=== PATIENT | female | born 1950 | race Caucasian/White ===

== ENCOUNTER 2016-12-16 12:23 | Emergency (ER) | payer OTHER, MEDICAID ==
[~2016-12-16] VITALS: Ht 165.1 cm; Wt 120.0 kg
[~2016-12-16 12:23] MED LIST: CELE200C PO; CLON.1 PO; ENAL10TA7 PO; METF500 PO; METO100T PO; NIFE60TA5 PO; SYNT200T PO; ZOCO40TA PO
[2016-12-16 12:26] VITALS: BP 190/101; PULSE 103; RESP 16; TEMP 98.2; O2SAT 95
[2016-12-16] MEDS ORDERED: SODIUM CHLOR 0.9% 1000 ML INJ 1,000 ML IV SCH ×2 (13:54→14:06)
[2016-12-16] MEDS ORDERED: MORPHINE SULFATE 4 MG/ML INJ IV PUSH ONE (14:15)
[2016-12-16] MEDS ORDERED: ONDANSETRON HCL 4 MG/2 ML VIAL IVP ONE (14:15)
--- NOTE | 2016-12-16 14:23 | PD ---
HPI Chief Complaint: Abdominal Pain Time Seen by Provider: 14:19 Travel History International Travel<30 days: No Contact w/Intl Traveler<30days: No Traveled to known affect area: No History of Present Illness HPI 66-year-old female that presents to the ED for evaluation of right lower quadrant abdominal pain to the back. Per patient she's had this since yesterday. Per patient she's had some issues with constipation and was put on magnesium psych treated by her doctor with good results having a bowel movement yesterday. Per patient she was concerned this might be related to that. She also tells me that she does have a history of kidney stones and this pain feels somewhat similar to that except that his is more severe than what she can remember. She states that the pain gets worse with movement and there is no actual position that makes her more comfortable. Per patient the pain is 8 out of 10. Comes and goes but today has becoming more constant. No urinary issues. Per patient she did have a normal bowel movement yesterday but she is concerned that she might have something causing an obstruction. She denies any fevers chills or sweats. No nausea or vomiting. She does have a history of appendectomy as well as hysterectomy in the past with no issues. She actually went to see her doctor for the constipation and was given the magnesium psych today but has not been seen for this new pain. She has not taken anything for this pain. PFSH Past Medical History Autoimmune Disease: No Cardiovascular Problems: Yes (HTN) Diabetes: Yes ?: Not Social History Alcohol Use: Yes (1 "BUD" EVERY 2-3 WEEKS) Tobacco Use: No Substance Use: No Allergies-Medications (Allergen,Severity, Reaction): Coded Allergies: No Known Allergies (Verified , 12/16/16) Reported Meds & Prescriptions Reported Meds & Active Scripts Active Reported Synthroid 200 mcg (Levothyroxine Sodium) 200 Mcg Tab 500 Mcg PO DAILY TAKE ON AN EMPTY STOMACH Zocor 40 mg (Simvastatin) 40 Mg Tab 10 Mg PO HS Nifedical Xl (Nifedipine) 60 Mg Tab 120 Mg PO DAILY Metoprolol Tartrate 100 mg (Metoprolol Tartrate) 100 Mg Tab 100 Mg PO BID Glucophage 500 mg (Metformin HCl) 500 Mg Tab 1,000 Mg PO BIDPC Enalapril Maleate 10 Mg Tab 20 Mg PO BID Catapres 0.1 mg (Clonidine HCl) 0.1 Mg Tab 1 Tab PO BID Celebrex (Celecoxib) 200 Mg Cap 200 Mg PO Review of Systems General / Constitutional: No: Fever, Chills, Weight Gain, Weight Loss, Other Eyes: No: Diploplia, Blurred Vision, Photophobia, Drainage, Redness, Foreign Body Sensation, Pain, Tearing, Blind Spots, Visual changes, Blindness, Other HENT: No: Headaches, Vertigo, Lightheadedness, Sore Throat, Rhinitis, Rhinorrhea, Congestion, Nosebleed, Neck Stiffness, Neck Pain, Masses, Gingival Bleeding, Dental Difficulties, Ear Discharge, Earache, Other Cardiovascular: No: Chest Pain or Discomfort, Palpitations, Irregular Rhythm, Tachycardia, Diaphoresis, Syncope, Dyspnea on exertion, Varicosities, Edema, Cyanosis, Varicosities, Phlebitis, Claudication, Other Respiratory: No: Cough, Shortness of Breath, Wheezing, Sneezing, Orthopnea, Hemoptysis, Stridor, Night Sweats, Pleuritic Pain, Other Gastrointestinal: Positive: Abdominal Pain, Constipation, Changes in Bowel Habits, No: Nausea, Vomiting, Diarrhea, Hematemesis, Hematochezia, Indigestion , Dysphagia, Loss of Appetite, Other Genitourinary: Positive: Flank Pain, No: Urgency, Frequency, Dysuria, Nocturia , Hematuria, Decreased Urinary Output, Oliguria, Hesitancy, Dribbling, Incontinence, Pelvic Pain, Dyspareunia, Discharge, Dysmenorrhea, Menorrhagia, Metorrhagia, Vaginal Bleeding, Other Musculoskeletal: No: Myalgias, Arthralgias, Limited ROM, Weakness, Cramping, Edema, Pain, Atrophy, Other Skin: No Rash, No Itching, No Dryness, No Lumps, No Hives, No Change in Pigmentation, No Change in nails, No Alopecia, No Lesions, No Breast Lumps, No Breast Tenderness, No Breast Swelling, No Other Neurologic: No: Weakness, Dizziness, Syncope, Focal Abnormalities, Coordination Problem, Tremor, Ataxia, Headache, Change in Mentation, Slurred Speech, Paresthesia, Incontinence, Seizures, Sensory Disturbance, Other Psychiatric: No: Anxiety, Depression, Suicidal Ideations, Disorder of Thought, Mood Disorder, Substance Abuse, Homicidal Ideation, Other Endocrine: No: Heat Intolerance, Cold Intolerance, Polyuria, Polydipsia, Other Hematologic/Lymphatic: No: Easy Bruising, Lymph Node Enlargement, Other Physical Exam Narrative GENERAL: SKIN: Warm and dry. HEAD: Atraumatic. Normocephalic. EYES: Pupils equal and round. No scleral icterus. No injection or drainage. ENT: No nasal bleeding or discharge. Mucous membranes pink and moist. Tongue is midline. No uvula deviation. NECK: Trachea midline. No JVD. CARDIOVASCULAR: Regular rate and rhythm. No murmurs, S3, S4. RESPIRATORY: No accessory muscle use. Clear to auscultation. Breath sounds equal bilaterally. GASTROINTESTINAL: Abdomen soft, non-tender, nondistended. Hepatic and splenic margins not palpable. MUSCULOSKELETAL: Extremities without clubbing, cyanosis, or edema. No obvious deformities. Full range of motion of the lower extremities with patient has pain with movements on the right hip on the right lower quadrant as well as the flank. No obvious rash noted. NEUROLOGICAL: Awake and alert. No obvious cranial nerve deficits. Motor grossly within normal limits. Five out of 5 muscle strength in the arms and legs. Normal speech. PSYCHIATRIC: Appropriate mood and affect; insight and judgment normal. Data Data Last Documented VS Vital Signs Date Time Temp Pulse Resp B/P Pulse Ox O2 Delivery O2 Flow Rate FiO2 12/16/16 12:26 98.2 103 16 190/101 95 Orders Complete Blood Count With Diff (12/16/16 13:54) Comprehensive Metabolic Panel (12/16/16 13:54) Lipase (12/16/16 13:54) Lactic Acid (12/16/16 13:54) Prothrombin Time / Inr (Pt) (12/16/16 13:54) Act Partial Throm Time (Ptt) (12/16/16 13:54) Urinalysis - C+S If Indicated (12/16/16 13:54) Ct Abd/Pel W Iv Contrast(Rout) (12/16/16 13:54) Iv Access Insert/Monitor (12/16/16 13:54) Sodium Chlor 0.9% 1000 Ml Inj (Ns 1000 M (12/16/16 13:54) Morphine Inj (Morphine Inj) (12/16/16 14:15) Ondansetron Inj (Zofran Inj) (12/16/16 14:15) Sodium Chlor 0.9% 1000 Ml Inj (Ns 1000 M (12/16/16 14:06) Iohexol 350 Inj (Omnipaque 350 Inj) (12/16/16 16:14) Labs Laboratory Tests Test 12/16/16 12/16/16 14:00 14:10 Urine Color YELLOW Urine Turbidity CLEAR Urine pH 6.0 Urine Specific [place] 1.017 Urine Protein NEG mg/dL Urine Glucose (UA) 150 mg/dL Urine Ketones NEG mg/dL Urine Occult Blood NEG Urine Nitrite NEG Urine Bilirubin NEG Urine Urobilinogen LESS THAN 2.0 MG/DL Urine Leukocyte Esterase NEG Urine RBC LESS THAN 1 /hpf Urine WBC 1 /hpf Urine Squamous Epithelial 3 /hpf Cells Microscopic Urinalysis Comment CULT NOT INDICATED White Blood Count 11.8 TH/MM3 Red Blood Count 4.59 MIL/MM3 Hemoglobin 14.9 GM/DL Hematocrit 43.4 % Mean Corpuscular Volume 94.5 FL Mean Corpuscular Hemoglobin 32.3 PG Mean Corpuscular Hemoglobin 34.2 % Concent Red Cell Distribution Width 12.4 % Platelet Count 299 TH/MM3 Mean Platelet Volume 9.8 FL Neutrophils (%) (Auto) 62.9 % Lymphocytes (%) (Auto) 23.9 % Monocytes (%) (Auto) 8.2 % Eosinophils (%) (Auto) 4.1 % Basophils (%) (Auto) 0.9 % Neutrophils # (Auto) 7.4 TH/MM3 Lymphocytes # (Auto) 2.8 TH/MM3 Monocytes # (Auto) 1.0 TH/MM3 Eosinophils # (Auto) 0.5 TH/MM3 Basophils # (Auto) 0.1 TH/MM3 CBC Comment DIFF FINAL Differential Comment Prothrombin Time 10.4 SEC Prothromb Time International 0.9 RATIO Ratio Activated Partial 28.7 SEC Thromboplast Time Sodium Level 138 MEQ/L Potassium Level 3.9 MEQ/L Chloride Level 100 MEQ/L Carbon Dioxide Level 29.5 MEQ/L Anion Gap 9 MEQ/L Blood Urea Nitrogen 14 MG/DL Creatinine 0.85 MG/DL Estimat Glomerular Filtration 67 ML/MIN Rate Random Glucose 215 MG/DL Lactic Acid Level 2.4 mmol/L Calcium Level 9.1 MG/DL Total Bilirubin 0.5 MG/DL Aspartate Amino Transf 16 U/L (AST/SGOT) Alanine Aminotransferase 27 U/L (ALT/SGPT) Alkaline Phosphatase 102 U/L Total Protein 7.8 GM/DL Albumin 4.2 GM/DL Lipase 135 U/L [facility] Medical Decision Making Medical Screen Exam Complete: Yes Emergency Medical Condition: Yes Medical Record Reviewed: Yes Interpretation(s) CBC & BMP Diagram 12/16/16 14:10 PT and PTT WNL Lactic acid of 2.4 Last Impressions Abdomen/Pelvis CT 12/16/16 1354 Signed Impressions: Service Date/Time: , December 16, 2016 15:41 - CONCLUSION: No acute disease. Hypodense liver characteristic of steatosis. Ivan Escobar MD UA negative Differential Diagnosis Kidney stone versus pyelonephritis versus acute abdomen versus obstruction Narrative Course 66-year-old female that presents to the ED for evaluation of right lower quadrant abdominal pain as well as flank pain. Patient was properly examined and was found to have signs and symptoms concerning for kidney stone versus pyelonephritis versus diverticulitis or obstruction. Recommendation is as per labs and imaging pending what the urine shows. If urine shows signs of kidney stone or infection will do CT without contrast to rule out stone. Patient was given IV pain medications. Patient agrees with plan. CTs and imaging were essentially unremarkable other than for slightly elevated wells account as well as lactic acid. Case was discussed in my attending who evaluated the patient with me and agrees with plan. He recommends discharge. Patient was reassured. From history and physical and after speaking with her about her results she actually tells me that now she remembers that she bent down and the pain started during that time. From history and physical this likely could be muscle skeletal. Patient was reassured. Patient understands reasons to come back. Patient will be sent home with prescriptions for Lortab, Robaxin and diclofenac sodium. Told to follow up closely with PCP. See ED worsening symptoms. Diagnosis Primary Impression: RLQ abdominal pain Additional Impression: Muscle strain Patient Instructions: Narcotic given in the ED, General Instructions Additional Instructions: Take medications as prescribed. Follow-up with PCP. See ED for any worsening symptoms. Do not drink or drive while taking pain medication. Apply ice or heat as needed for pain Med/Other Pt SpecificInfo: Prescription(s) given Scripts Methocarbamol (Robaxin)750 Mg Tvs251 Mg PO QID PRN (PAIN SCALE 1 TO 10) #20 TAB Prov:Joshua Daniels MD 12/16/16 Hydrocodone-Acetaminophen (Lortab)5-325 Mg Tab1 Tab PO Q6H PRN (PAIN) #20 TAB Prov:Joshua Daniels MD 12/16/[address] 75 Mg Tabdr75 Mg PO BID PRN (PAIN SCALE 1 TO 10) #20 TAB Prov:Joshua Daniels MD 12/16/16 Disposition: 01 DISCHARGE HOME Condition: Stable Sunil Arenas Dec 16, 2016 14:23
[2016-12-16 14:30] LABS: AUTOMATED NEUTROPHIL # 7.4 TH/MM3 (1.8-7.7); BASOPHIL # 0.1 TH/MM3 (0-0.2); BASOPHIL % 0.9 % (0.0-2.0); EOSINOPHIL # 0.5 TH/MM3 (0-0.4); EOSINOPHIL % 4.1 % (0.0-4.0); HEMATOCRIT 43.4 % (35.0-46.0); HEMO FLAGS DIFF FINAL; LYMPH % 23.9 % (9.0-44.0); LYMPHOCYTE # 2.8 TH/MM3 (1.0-4.8); MEAN CELL VOLUME 94.5 FL (80.0-100.0); MEAN CORPUSCULAR HEMOGLOBIN 32.3 PG (27.0-34.0); MEAN CORPUSCULAR HGB CONC 34.2 % (32.0-36.0); MONO % 8.2 % (0.0-8.0); NEUT % 62.9 % (16.0-70.0); PLATELET COUNT 299 TH/MM3 (150-450); RED BLOOD COUNT 4.59 MIL/MM3 (4.00-5.30); RED CELL DISTRIBUTION WIDTH 12.4 % (11.6-17.2); WHITE BLOOD COUNT 11.8 TH/MM3 (4.0-11.0)
[2016-12-16 14:30] LABS: BLOOD, URINE NEG (NEG); GLUCOSE,URINE 150 mg/dL (NEG); KETONE, URINE NEG (NEG); NITRITE,URINE NEG (NEG); SQUAMOUS EPITHELIAL CELL URINE 3 /hpf (0-5); URINE COLOR YELLOW (YELLW/STRAW)
[2016-12-16 14:31] LABS: COMMENT (UR) CULT NOT INDICATED; CULTURE IF INDICATED CULT NOT INDICATED
[2016-12-16 14:38] LABS: APTT (PATIENT) 28.7 SEC (24.3-30.1); INTERNATIONAL NORMALIZED RATIO 0.9 RATIO; PROTHROMBIN TIME - PATIENT 10.4 SEC (9.8-11.6)
[2016-12-16 14:51] LABS: ALKALINE PHOSPHATASE 102 U/L (45-117); TOTAL BILIRUBIN ADULT 0.5 MG/DL (0.2-1.0)
[2016-12-16 14:58] LABS: ALT (GPT) 27 U/L (10-53); ANION GAP 9 MEQ/L (5-15); AST (GOT) 16 U/L (15-37); BICARBONATE 29.5 MEQ/L (21.0-32.0); BLOOD UREA NITROGEN 14 MG/DL (7-18); CHLORIDE 100 MEQ/L (98-107); GLOMERULAR FILTRATION RATE 67 ML/MIN (>89); POTASSIUM 3.9 MEQ/L (3.5-5.1); SODIUM (NA) 138 MEQ/L (136-145)
[2016-12-16] MEDS ORDERED: IOHEXOL 350 MG/ML 10 ML VIAL (for RAD DIAG) IV ONE (16:14)
--- NOTE | 2016-12-16 16:21 | RADRPT ---
EXAM DATE/TIME: 12/16/2016 15:41 [facility] COMPARISON: No previous studies available for comparison. INDICATIONS : Right lower quadrant radiating to right flank. IV CONTRAST: 96 cc Omnipaque 350 (iohexol) IV ORAL CONTRAST: No oral contrast ingested. RADIATION DOSE: 29.42 CTDIvol (mGy) MEDICAL HISTORY : Hypertension. Diabetes SURGICAL HISTORY : None. ENCOUNTER: Initial ACUITY: 1 month PAIN SCALE: 5/10 LOCATION: Abdomen TECHNIQUE: Volumetric scanning of the abdomen and pelvis was performed. Using automated exposure control and ad justment of the mA and/or kV according to patient size, radiation dose was kept as low as reasonably achievable to obtain optimal diagnostic quality images. FINDINGS: LOWER LUNGS: The visualized lower lungs are clear. LIVER: Liver is diffusely hypodense without evidence of focal lesion. There is no dilation of the biliary t ree. No calcified gallstones. SPLEEN: Normal size without lesion. PANCREAS: Within normal limits. KIDNEYS: Normal in size and shape. There is no mass, stone or hydronephrosis. ADRENAL GLANDS: Within normal limits. VASCULAR: There is no aortic aneurysm. BOWEL/MESENTERY: The stomach, small bowel, and colon demonstrate no acute abnormality. There is no free intraperitone al air or fluid. ABDOMINAL WALL: Within normal limits. RETROPERITONEUM: There is no lymphadenopathy. BLADDER: No wall thickening or mass. REPRODUCTIVE: Uterus has been removed. INGUINAL: There is no lymphadenopathy or hernia. MUSCULOSKELETAL: Within normal limits for patient age. CONCLUSION: No acute disease. Hypodense liver characteristic of steatosis. Ivan Escobar MD on December 16, 2016 at 16:16 Board Certified Radiologist. This report was verified electronically.
[2016-12-16] MEDS ORDERED: DICL75TA PO (16:39)
[2016-12-16] MEDS ORDERED: ROBA750T PO (16:39)
[2016-12-16] MEDS ORDERED: HYDR-3533 PO (16:39)
[2016-12-16] MEDS ORDERED: KETOROLAC TROMETHAMINE 30 MG/ML (IVP) VIAL IV PUSH ONE (16:45)
[2016-12-16 17:12] VITALS: BP 148/67
[2016-12-16] MEDS ORDERED: ENAL20TA PO (17:15)
[2016-12-16] MEDS ORDERED: CELE200C PO (17:15)
[2016-12-16] MEDS ORDERED: LEVO.1 PO (17:15)
[2016-12-16] MEDS ORDERED: CLON0.1T PO (17:15)
[2016-12-16] MEDS ORDERED: METF1000 PO (17:15)
[2016-12-16] MEDS ORDERED: SIMV10TA PO (17:15)
[2016-12-16] MEDS ORDERED: NIFE15TA PO (17:15)
[2016-12-16] MEDS ORDERED: METO100T PO (17:15)
== END 2016-12-16 17:30 | disposition home or self-care (01) ==
LOC: NEPE 12:23
DX: R10.31 Right lower quadrant pain (principal); T14.8 Other injury of unspecified body region; E11.9 Type 2 diabetes mellitus without complications; I10 Essential (primary) hypertension; Z79.4 Long term (current) use of insulin; X58.XXXA Exposure to other specified factors, initial encounter
CPT/HCPCS: 74177; 80053; 81001; 83605; 83690; 85025; 85610; 85730; 96361; 96374; 96375; 99284; J1885; J2270; J2405; J7030; Q9967